=== PATIENT | female | born 1980 | race Caucasian/White ===

== ENCOUNTER 2017-01-28 17:03 | Inpatient (IN) | payer SELFPAY ==
[2017-01-28] MEDS ORDERED: Morphine Sulfate 2 MG/ML SYRINGE SLOW IVP PRN (19:25)
[2017-01-28] MEDS: traMADol HCl 50 MG TAB PO PRN (20:58)
--- NOTE | 2017-01-28 22:07 | HP ---
CHIEF COMPLAINT: Left hand pain. HISTORY OF PRESENT ILLNESS: Ms. Maddox is a 36-year-old female who was helping a feral cat. The cat bit her left hand on both the dorsal and palmar aspect over the index finger and web space. This oc curred 2 nights ago. She has developed increasing pain, swelling, and erythema. She has had stiffn ess of the finger. She has felt like she has had a low grade fever. She presented to the emergency department tonight. She has been admitted for intravenous antibiotics. She reports some pain at r est, but pain is increased with mobility. She is right hand dominant. No other injuries. PAST MEDICAL HISTORY: Negative. PAST SURGICAL HISTORY: Appendectomy and tubal ligation, also cholecystectomy and previous right ank le surgery. PSYCHIATRIC HISTORY: Negative. SOCIAL HISTORY: The patient drinks alcohol occasionally. No tobacco or drug use. ALLERGIES: CHLORHEXIDINE, CLINDAMYCIN, HIBICLENS and SULFA ANTIBIOTICS. FAMILY MEDICAL HISTORY: Noncontributory. PHYSICAL EXAMINATION: VITAL SIGNS: Stable, blood pressure 145/99, pulse is 98, respiratory rate 17, temperature is 98.3. GENERAL: She is alert and oriented, sitting upright, in no apparent distress. RESPIRATORY: Breathing comfortably. ABDOMEN: Soft, nontender, nondistended. MUSCULOSKELETAL: The patient's left hand has erythema and warmth. There is swelling of the hand ov er the palmar and dorsal aspect at the radial side of the hand. She has decreased range of motion o f the index finger. She has several very small puncture wounds consistent with a cat bite. She has tenderness along the flexor tendon and the erythema in this area. No palmar pain. Two second capi llary refill. Sensation is intact. No blistering or other skin abnormality. IMPRESSION: Early flexor tenosynovitis and hand infection from a cat bite. PLAN: At this point, the patient has been started on intravenous vancomycin and Zosyn. She will co ntinue this overnight. I will reassess her in the morning. If she has no better, I will take her t o surgery tomorrow morning for irrigation and debridement of the flexor tendon sheath as well as the small puncture wounds. She is aware of risks and benefits. She will be n.p.o. at midnight. She w ill have adequate pain control.
[2017-01-28 22:27] VITALS: BMI 44.6
[2017-01-28] MEDS: Piperacillin/Tazobactam 3.375 GM in Sodium Chloride 0.9% 100 ML IVPB SCH (23:33)
[2017-01-29] MEDS: Sodium Chloride 0.9% 1,000 ML IV SCH ×3 (00:30→15:40)
[2017-01-29] MEDS: Piperacillin/Tazobactam 3.375 GM in Sodium Chloride 0.9% 100 ML IVPB SCH ×4 (06:43→23:47)
[2017-01-29] MEDS ORDERED: Dexamethasone 20 MG/5 ML VIAL ONE (08:14)
[2017-01-29] MEDS ORDERED: Propofol 200 MG/20 ML VIAL ONE (08:14)
[2017-01-29] MEDS ORDERED: Ondansetron HCl/PF 4 MG/2 ML Vial ONE (08:14)
[2017-01-29] MEDS ORDERED: Ketorolac Tromethamine 30 MG/ML VIAL ONE (08:14)
[2017-01-29] MEDS ORDERED: Lidocaine 2% PF 10 ML AMP (For Epidural Use) ONE (08:14)
[2017-01-29] MEDS ORDERED: Meperidine HCl/PF 25 MG/ML VIAL ONE (08:53)
[2017-01-29] MEDS ORDERED: Promethazine HCl 25 MG/ML VIAL SLOW IVP PRN (09:02)
[2017-01-29] MEDS ORDERED: Promethazine HCl 25 MG/ML VIAL IM PRN (09:02)
[2017-01-29] MEDS ORDERED: Ondansetron HCl/PF 4 MG/2 ML Vial IVP PRN (09:02)
[2017-01-29] MEDS ORDERED: Fentanyl 100 MCG/2 ML VIAL ONE (09:02)
[2017-01-29] MEDS: Ondansetron HCl/PF 4 MG/2 ML Vial SLOW IVP PRN (12:41)
[2017-01-29] MEDS: traMADol HCl 50 MG TAB PO PRN ×2 (12:44→20:25)
[2017-01-29] MEDS ORDERED: Sodium Chloride 0.9% 500 ML IVPB SCH (14:00)
--- NOTE | 2017-01-29 15:23 | PDOC.EVN ---
Event Note - Event Note Event Note: Consult note dictated from IM perspective 1) Left hand cat bite 2) S/P I&D 3) Hypotension 4) Bradycardia - at this point in time we would recommend to continue current plan of care - agree with IVFs and pain management - bradeycardia improving, HR measured over one minute and was found to be 70 - SBP improving with IVFs, continue IVFs - case and plan d/w patient and family at length, they understand and agree with this plan Thank you very much for the consult on this case, will follow closely with you and make further recommendations and changes from an internal medicine perspective as appropriate.
--- NOTE | 2017-01-29 15:38 | OP ---
DATE OF OPERATION: 01/29/2017 OPERATION: Irrigation and debridement of left hand infection with irrigation and debridement of lef t flexor tenosynovitis of the index finger. PREOPERATIVE DIAGNOSIS: Left hand infection with flexor tenosynovitis of the index finger. POSTOPERATIVE DIAGNOSIS: Left hand infection with flexor tenosynovitis of the index finger. COMPLICATIONS: None. ESTIMATED BLOOD LOSS: Minimal. SURGEON: Mason Prieto M.D. ANESTHESIA: General plus local. INDICATIONS: Ms. Maddox is a 36-year-old female who has developed a severe infection of the hand afte r a cat bite. She has been indicated for the above procedures to eradicate infection and prevent an y further worsening or complication. Risks have been reviewed in detail. She has elected to procee d with the operation. DESCRIPTION OF PROCEDURE: Ms. Maddox was identified in the preoperative holding area. Her correct ex tremity was marked. She was carried to the operating room. She was positioned supine. General ane sthesia was induced. A multidisciplinary timeout was performed. The left hand was prepped and drap ed in a sterile fashion. We began the procedure with an incision over the dorsal hand at the patient's puncture wounds. We d issected down through the subcutaneous tissues. We exposed the underlying tendinous structures. At this point, we thoroughly irrigated with copious lavage these 2 small wounds. We then loosely clos ed with a 4-0 nylon suture. Next, we made a oblique incision over the palm at the palmar cat bite w ounds. We dissected down to the flexor tendon. The sheath was opened. At this point, we encounter ed a cloudy fluid, which was cultured. We exposed the tendon itself. We thoroughly irrigated with copious lavage. We performed a thorough irrigation with 1 liter of fluid. At this point, we loosel y closed with a 4-0 nylon suture. A sterile dressing was applied. The patient was taken to recover y room in good condition without complication.
--- NOTE | 2017-01-29 16:23 | CON ---
DATE OF CONSULTATION: 01/29/2017 REASON FOR CONSULTATION: Hypotension and bradycardia. CHIEF COMPLAINT FOR ADMISSION: Left hand pain status post cat bite. HISTORY OF PRESENT ILLNESS: This is a 36-year-old female who was apparently bitten by a cat 4 days ago, was given oral antibiotics. The patient was noted to have swelling in her left hand as well as the dorsal and ventral portions of her left hand. Patient was admitted to surgical team and was ob served for 12 hours, noted to have worsening of her swelling. Concern for compartment syndrome was present. The patient was opted to take to the OR for incision and drainage. The patient at this po int in time is status post incision and drainage and has been seen by Internal Medicine due to low b lood pressure and bradycardia. The patient states that her normal blood pressure has been in the 11 0s to 120s and her heart rate usually runs in the 70s-80s. The patient states that this issue with blood pressure and heart rate has never occurred in the past. Denies any alleviating or aggravating factors. No nausea, vomiting, diarrhea, constipation, chest pain, fevers, or shortness of breath p resent at the time of evaluation. ALLERGIES: No known drug allergies. MEDICATIONS: The patient does not take any home medications. PAST MEDICAL HISTORY: None. PAST SURGICAL HISTORY: Right ankle reconstruction at the age of 18 secondary to fall, two surgeries there; left ovarian cyst removal; and cholecystectomy. FAMILY HISTORY: Addiction runs in her father's side and that is the only medical history that she h as. SOCIAL HISTORY: The patient drinks alcohol socially. Denies any smoking current or past. REVIEW OF SYSTEMS: Twelve point review of systems performed. Pertinent positives listed in the HPI , otherwise negative. PHYSICAL EXAMINATION: VITAL SIGNS: Blood pressure is 112/69, heart rate of 68, temperature is 97.4, respiratory rate is 1 8, O2 saturation 96% on 2 liters nasal cannula, and temperature of 97.4. GENERAL: The patient lying in bed 35% bed elevation, no acute distress, breathing, nasal cannula, a ir. HEENT: NC, AT. PERRLA, EOMI. Oral cavity moist and pink. NECK: Supple, nontender, mobile palpable thyroid. No lymphadenopathy noted. GENERAL APPEARANCE: General body habitus. The patient is an obese female. CARDIOVASCULAR: Regular rate and rhythm. S1, S2. No murmurs, rubs or gallops appreciated. PULMONARY: Clear to auscultation bilaterally. Symmetric chest exam expansion. ABDOMEN: Nondistended, rotund, positive bowel sounds, soft, nontender to palpation. EXTREMITIES: Trace edema in bilateral lower extremities. 2+ peripheral pulses noted. NEUROLOGIC: Cranial nerves II-XII intact. No loss of motor or sensory function. PSYCHIATRIC: Normal affect, alert, oriented x3. SKIN: No rashes or bruises noted. ASSESSMENT AND PLAN: 1. Left hand cat bite. 2. Status post incision and drainage. 3. Hypotension. 4. Bradycardia. At this point in time, we agree with continuation of IV fluids. We will continue with (03:15) mL of normal saline for now. Bradycardia may or may not be a reflexive reaction to anesthesia, the patient's pulse rate is ranging from 60s to upper 70s during evaluation; however, atrial fibrillati on was not seen on monitors. This is likely a response to anxiety, anesthesia, and pain. Okay to continue morphine for pain management. If needed would accept tramadol as an alternative an d use morphine only as needed for breakthrough pain levels 8/10 or greater given possibility of sameer ycardia and low blood pressure induced by morphine. We will continue to follow this patient closely with you. The patient should have recovery of her b lood pressure back to normal and heart rate back to normal within 24-48 hours. Thank you very much for this consultation on this patient. We will follow very closely with you and make any further recommendations and changes from an Internal Medicine perspective as appropriate. Case and plan discussed with patient's mother and both sons at length. They all understand and agr ee with this plan.
[2017-01-29] MEDS: HYDROcodone/Acetaminophen 5/325 mg Tablet PO PRN ×2 (17:35→23:46)
[2017-01-29] MEDS: Vancomycin HCl 1 GM in Premix Bag 1 BAG IVPB SCH (20:28)
[2017-01-30] MEDS: traMADol HCl 50 MG TAB PO PRN ×2 (04:11→15:47)
[2017-01-30] MEDS: Sodium Chloride 0.9% 1,000 ML IV SCH (04:14)
[2017-01-30] MEDS: Piperacillin/Tazobactam 3.375 GM in Sodium Chloride 0.9% 100 ML IVPB SCH ×2 (06:39→11:09)
[2017-01-30] MEDS ORDERED: Mag-Al 1200 mg/1200 mg/30 ML UDCUP PO PRN (06:56)
[2017-01-30] MEDS ORDERED: Artificial Tears 18 DROP/0.9 ML EA EYE PRN (06:56)
[2017-01-30] MEDS ORDERED: Eucerin (Mineral Oil/Petrolatum,White) 30 gm Jar TOP PRN (06:56)
[2017-01-30] MEDS ORDERED: Diabetic Tussin 200 MG/10 ML UDCUP PO PRN (06:56)
[2017-01-30] MEDS ORDERED: Loperamide HCl 2 MG CAP PO PRN (06:56)
[2017-01-30] MEDS ORDERED: Ondansetron ODT 4 MG TAB PO PRN (06:56)
[2017-01-30] MEDS ORDERED: Milk Of Magnesia 30 ML UDCUP PO PRN (06:56)
[2017-01-30] MEDS ORDERED: Famotidine 20 MG TAB PO PRN (06:56)
[2017-01-30] MEDS ORDERED: Senokot 8.6 MG TAB PO PRN (06:56)
[2017-01-30] MEDS ORDERED: Loratadine 10 MG TAB PO PRN (06:56)
[2017-01-30] MEDS ORDERED: Sodium Chloride 0.65% Nasal 44 ML BOT EA NARE PRN (06:56)
[2017-01-30] MEDS ORDERED: Acetaminophen 325 MG TAB PO PRN (06:56)
[2017-01-30] MEDS ORDERED: Zolpidem Tartrate 5 MG TAB PO PRN (06:56)
[2017-01-30] MEDS: HYDROcodone/Acetaminophen 5/325 mg Tablet PO PRN (08:41)
[2017-01-30] MEDS: Vancomycin HCl 1 GM in Premix Bag 1 BAG IVPB SCH (08:42)
--- NOTE | 2017-01-30 10:56 | PDOC.PN ---
- Subjective Encounter Start Date: 01/30/17 Encounter Start Time: 07:50 -: old records requested/rev Patient seen and examined. No new complaints. No overnight events - Objective MAR Reviewed: Yes Vital Signs & Weight: Vital Signs (12 hours) Temp Pulse Resp BP Pulse Ox 01/30/17 08:00 98.1 F 41 L 14 148/90 H 100 01/30/17 04:00 97.7 F 56 L 14 116/74 96 01/30/17 00:00 97.6 F 45 L 16 134/64 97 Weight Weight 285 lb I&O: 01/29/17 01/30/17 01/31/17 06:59 06:59 06:59 Intake Total 5530 Balance 5530 Phys Exam - Physical Examination Constitutional: NAD HEENT: PERRLA, moist MMs, sclera anicteric Neck: no JVD, supple Respiratory: no wheezing, no rales, no rhonchi Cardiovascular: RRR, no significant murmur, no rub Gastrointestinal: soft, non-tender, no distention, positive bowel sounds Musculoskeletal: no edema, pulses present Neurological: non-focal, normal sensation, moves all 4 limbs Psychiatric: normal affect, A&O x 3 Skin: no rash, normal turgor Dx/Plan (1) Cat bite of hand Code(s): S61.459A - OPEN BITE OF UNSPECIFIED HAND, INITIAL ENCOUNTER; W55.01XA - BITTEN BY CAT, INITIAL ENCOUNTER Status: Acute Qualifiers: Laterality: left (2) Bradycardia Code(s): R00.1 - BRADYCARDIA, UNSPECIFIED Status: Acute (3) Morbid obesity with BMI of 40.0-44.9, adult Code(s): E66.01 - MORBID (SEVERE) OBESITY DUE TO EXCESS CALORIES; Z68.41 - BODY MASS INDEX (BMI) 40.0-44.9, ADULT Status: Chronic (4) Hypotension Status: Resolved - Plan cont current plan of care, continue antibiotics * pt is asymptomatic * today i will check cbc, bmp, tsh and cardiac enzyme and i will do ekg * if all normal she is medically stable for discharge * she does not need more testing * medication reviewed as below * symptomatic treatment.. * oral antibiotics given by primary team Review of Systems - Review of Systems ENT: negative: Ear Pain, Ear Discharge, Nose Pain, Nose Discharge, Nose Congestion, Mouth Pain, Mouth Swelling, Throat Pain, Throat Swelling, Other Respiratory: negative: Cough, Dry, Shortness of Breath, Hemoptysis, SOB with Excertion, Pleuritic Pain, Sputum, Wheezing Cardiovascular: negative: Chest Pain, Palpitations, Orthopnea, Paroxysmal Noc. Dyspnea, Edema, Light Headedness, Other Gastrointestinal: negative: Nausea, Vomiting, Abdominal Pain, Diarrhea, Constipation, Melena, Hematochezia, Other Genitourinary: negative: Dysuria, Frequency, Incontinence, Hematuria, Retention , Other Musculoskeletal: negative: Neck Pain, Shoulder Pain, Arm Pain, Back Pain, Hand Pain, Leg Pain, Foot Pain, Other - Medications/Allergies Allergies/Adverse Reactions: Allergies Allergy/AdvReac Type Severity Reaction Status Date / Time chlorhexidine Allergy Verified 01/28/17 18:[address] [[address] [facility]] clindamycin Allergy Verified 01/28/17 18:06 Sulfa (Sulfonamide Allergy Verified 01/28/17 18:06 Antibiotics) Medications: Current Medications Acetaminophen (Tylenol) 650 mg PO Q4H PRN PRN Reason: Headache/Fever or Mild Pain Hydrocodone Bitart/Acetaminophen ([place] 5/325) 2 tab PO Q6H PRN PRN Reason: Pain Last Admin: 01/30/17 08:41 Dose: 2 tab Al Hydroxide/Mg Hydroxide (Maalox) 15 ml PO Q4H PRN PRN Reason: Heartburn or Indigestion Artificial Tears (Tears Naturale) 0 drop EA EYE PRN PRN PRN Reason: Dry Eyes Famotidine (Pepcid) 20 mg PO BIDPRN PRN PRN Reason: Heartburn or Indigestion Guaifenesin (Robitussin Sf) 200 mg PO Q4H PRN PRN Reason: Cough Hydralazine HCl (Apresoline) 10 mg SLOW IVP Q4H PRN PRN Reason: Systolic BP > 180 Piperacillin Sod/Tazobactam (Sod 3.375 gm/ Sodium Chloride) 100 mls @ 200 mls/ hr IVPB Q6HR [facility] Stop: 01/31/17 23:59 Last Admin: 01/30/17 06:39 Dose: 100 mls Sodium Chloride (Normal Saline 0.9%) 1,000 mls @ 75 mls/hr IV .[id number] [facility] Last Admin: 01/30/17 04:14 Dose: 1,000 mls Vancomycin HCl 1 gm/ Device 200 mls @ 200 mls/hr IVPB Q12HR DYAN Stop: 01/31/17 21:01 Last Admin: 01/30/17 08:42 Dose: 200 mls Loperamide HCl (Imodium) 2 mg PO PRN PRN PRN Reason: Diarrhea/Loose Stools Loratadine (Claritin) 10 mg PO DAILYPRN PRN PRN Reason: Sinus Symptoms Magnesium Hydroxide (Milk Of Magnesium) 30 ml PO DAILYPRN PRN PRN Reason: Constipation Mineral Oil/White Petrolatum (Eucerin Cream) 0 gm TOP BIDPRN PRN PRN Reason: Dry Skin Morphine Sulfate (Morphine Sulfate) 2 mg SLOW IVP Q4H PRN PRN Reason: Severe Pain (7-10) Last Admin: 01/29/17 16:20 Dose: 2 mg Ondansetron HCl (Zofran) 4 mg SLOW IVP Q4H PRN PRN Reason: Nausea/Vomiting Last Admin: 01/29/17 12:41 Dose: 4 mg Ondansetron HCl (Zofran Odt) 4 mg PO Q6H PRN PRN Reason: Nausea/Vomiting Senna (Senokot) 2 tab PO HSPRN PRN PRN Reason: Constipation Sodium Chloride (Flush - Normal Saline) 10 ml IVF PRN PRN PRN Reason: Saline Flush Sodium Chloride ([place] Nasal Colon 0.65%) 0 ml EA NARE QIDPRN PRN PRN Reason: Nasal Congestion Tramadol HCl (Ultram) 100 mg PO Q6H PRN PRN Reason: Pain Last Admin: 01/30/17 04:11 Dose: 100 mg Zolpidem Tartrate (Ambien) 5 mg PO HSPRN PRN PRN Reason: Insomnia
[2017-01-30] MEDS: Ondansetron HCl/PF 4 MG/2 ML Vial SLOW IVP PRN (11:09)
[2017-01-30 11:28] LABS: #Lymphocytes 2.3 thou/uL (1.20-3.40); #Monocytes 0.5 thou/uL (0.11-0.59); #Neutrophils 5.3 thou/uL (1.40-6.50); %Basophils 0.1 % (0.0-1.0); %Eosinophils 0.2 % (0.0-10.0); %Monocytes 6.2 % (0.0-10.0); Hematocrit 31.9 % (36.0-47.0); Mean Platelet Volume 8.6 fL (7.4-10.4); Red Blood Cell (RBC) Count 4.08 mill/uL (4.20-5.40); White Blood Cell (WBC) Count 8.1 thou/uL (4.8-10.8)
[2017-01-30 11:47] LABS: Anion Gap 11 mmol/L (10-20); BUN (Urea Nitrogen) 11 mg/dL (7.0-18.7); Calc. Creatinine Clearance 207 mL/min (70-130); Calcium 8.5 mg/dL (7.8-10.44); Carbon Dioxide 24 mmol/L (22-29); Chloride 109 mmol/L (98-107); Estimated GFR-MDRD 85
--- NOTE | 2017-01-30 13:20 | DIS ---
DATE OF ADMISSION: 01/28/2017 DATE OF DISCHARGE: 01/30/2017 PRIMARY CARE PHYSICIAN: [facility] call admission. DISCHARGE DISPOSITION: Home. PRIMARY DISCHARGE DIAGNOSES: 1. Cellulitis, left hand status post incision and drainage after cat bite of the hand. 2. Asymptomatic bradycardia. 3. Hypotension, resolved. SECONDARY DISCHARGE DIAGNOSIS: Morbid obesity with body mass index of 44. PRIMARY PROCEDURE/OPERATION: I\T\D was performed by Dr. Prieto for left hand cellulitis. SIGNIFICANT LABORATORY DATA: CBC normal. BMP normal, hemoglobin 10.1. Cardiac enzymes negative. TSH normal. Culture from finger is pending. DISCHARGE MEDICATIONS: Patient is given antibiotic and pain medication prescription by primary team . ALLERGIES: CHLORHEXIDINE, CLINDAMYCIN, SULFA DRUGS. CONTRAINDICATIONS: None. CODE STATUS: FULL CODE. DISCHARGE PLAN: Post hospital, the patient will follow up with Dr. Prieto in 7 days. HOSPITAL COURSE: A 36-year-old female who had a cat bite on her left hand and subsequently she was having tenosynovitis of the left hand infection and flexor tenosynovitis of index finger. Patient r equired minor I\T\D by him. Postoperatively, the patient was hypotensive and she had bradycardia an d that is why we were consulted. Bradycardia was probably related with vasovagal versus asymptomati c bradycardia. Thyroid function is normal. She has sinus bradycardia. The patient is asymptomatic . Her cardiac enzyme is negative. Her pulses, when we checked for entire minute, it goes to above 50 all the time. She does not need any further investigation at this point. The patient will have oral antibiotic therapy and pain medication as prescribed by primary team and we will sign off. The patient is seen and examined at bedside today. Please see my progress note from today for on license of [facility] er details.
[2017-01-30] MEDS ORDERED: Ibuprofen 600 MG TAB PO PRN (13:43)
[2017-01-30] MEDS ORDERED: Acetaminophen/Codeine 30-300mg Tablet PO PRN ×2 (14:15)
[2017-01-30 16:38] VITALS: BP 121/62; TEMP 97.9
--- NOTE | 2017-01-31 10:01 | EKG ---
Test Reason : Blood Pressure : / mmHG Vent. Rate : 059 BPM Atrial Rate : 059 BPM P-R Int : 142 ms QRS Dur : 094 ms QT Int : 450 ms P-R-T Axes : 048 025 028 degrees QTc Int : 445 ms Sinus bradycardia with sinus arrhythmia Otherwise normal ECG No previous ECGs available Confirmed by ROBIN BENNETT ([id number]) on 01/31/2017 10:01:01 AM Referred By: FRANCISCO J Confirmed By:ROBIN BENNETT
== END 2017-01-30 18:05 | disposition home or self-care (01) | DRG 580 ==
LOC: ERS 17:03 → SURG B 18:58
PROVIDERS: ADMIT Orthopaedic Surgery; ATTEND Orthopaedic Surgery
PROC: 0J9K0ZZ Drainage of Left Hand Subcutaneous Tissue and Fascia, Open Approach (ICD-10-PCS; principal; 2017-01-29)
PROC: 0L980ZZ Drainage of Left Hand Tendon, Open Approach (ICD-10-PCS; principal; 2017-01-29)
DX: L03.114 Cellulitis of left upper limb (principal); Z68.41 Body mass index [BMI] 40.0-44.9, adult; I95.9 Hypotension, unspecified; E66.01 Morbid (severe) obesity due to excess calories; S61.452A Open bite of left hand, initial encounter; M65.842 Other synovitis and tenosynovitis, left hand; W55.01XA Bitten by cat, initial encounter; R00.1 Bradycardia, unspecified; R55 Syncope and collapse
CPT/HCPCS: 36415; 80048; 82553; 84443; 84484; 85025; 87070; 87205; 93005; 93010; 96374; J1100; J1885; J2001; J2175; J2270; J2405; J2543; J2704; J3010; J3370; J7050

== ENCOUNTER 2017-11-23 14:30 | Emergency (ER) | payer SELFPAY ==
[2017-11-23] MEDS ORDERED: Fentanyl 100 MCG/2 ML VIAL ONE (15:02)
--- NOTE | 2017-11-23 15:42 | ULT ---
PELVIC ULTRASOUND WITH BENNETT SCALE AND DOPPLER COLOR FLOW TRANSVAGINAL PELVIC ULTRASOUND: Date: 11/23/17 INDICATION: Left lower quadrant pain. FINDINGS: No evidence of focal uterine lesion. Endometrial stripe is appropriate in thickness for patient's age at 8.0 mm. No evidence of significant free pelvic fluid. Doppler evaluation reveals flow to each ova ry with vascular waveforms documented. There is asymmetric prominent volume of the left ovary, relati ve to the right. The left ovarian length is approximately 4.5 cm. There is no discrete ovarian lesion evident. IMPRESSION: 1. Asymmetric prominent volume of left ovary, nonspecific. No associated ovarian lesion is visualize d. 2. No free pelvic fluid. 3. Unremarkable appearance of the uterine and endometrium. 4. Recommend clinical correlation to exclude evidence of a developing ovarian torsion, as the presen ce of vascularity within the left ovary does not exclude torsion as a diagnosis. As necessary, imagin g follow-up may be obtained. POS: LAVINIA
--- NOTE | 2017-11-24 04:11 | CON ---
DATE OF CONSULTATION: 11/23/2017 REFERRING PHYSICIAN: Dr. Brady Otero. CHIEF COMPLAINT: Left lower quadrant pain with enlarged ovary. HISTORY OF PRESENT ILLNESS: The patient is a 37-year-old female transferred from [place] for concerns of possible ovarian torsion. METAL BONDER was consulted for an enlarged left ovary and persistent left pelvic pain. Patient describes that the pain began as a sharp pain in her left lower quadrant, felt like something had ruptured and then has improved some, but has moved to more diffuse in her lower pelvis with concentration left lower quadrant. The patient reports that she has a history of ovarian cyst ruptures this feels like. She reports that the first day of her last period was about 2 weeks ago. She reports regular monthly periods and is not on any kind of control. The patient reports that she has had some diarrhea since yesterday. She denies fever, headache, chest pain, shortness of breath. The patient has had some nausea and vomiting. She denies any chest pain or shortness of breath. She does report a rash that she has had in between her breasts and to the left side that itches. She denies any bleeding or change in discharge or any urinary symptoms. PAST MEDICAL HISTORY: Includes obesity and history of ovarian cysts. PAST SURGICAL HISTORY: She has had surgery on her hand, appendectomy, cholecystectomy. She has had several laparoscopic surgeries for ovarian cyst drainage. She has had a right ankle surgery and a tubal ligation. SOCIAL HISTORY: The patient reports very rare alcohol use, denies drug or tobacco use. CURRENT MEDICATIONS: None at home. She has had morphine, Toradol, fentanyl, Zofran in the [place] and a local ER here [facility] in [place]. PHYSICAL EXAMINATION: VITAL SIGNS: Blood pressure 106/51, pulse is 68, respiratory rate of 18, temperature 97.9. GENERAL: The patient appears to be in no acute distress. She is alert and oriented, cooperative and pleasant to interact with. HEAD: Normocephalic, atraumatic. LUNGS: Clear to auscultation bilaterally. HEART: Regular rate and rhythm. BREASTS: The rash in between her breasts and to lateral of her left breast. EYES: Her macular with irregular edges appeared rolled and there does not appear to be much scaling. ABDOMEN: Tender, more diffusely in the lower pelvis and concentrated on left lower quadrant. EXTREMITIES: Nontender, nonedematous. LABORATORY AND DIAGNOSTIC DATA: Pelvic ultrasound demonstrates with greater diameter approximately 4.5 cm with no visible ovarian lesions. She has no free fluid in the pelvis and unremarkable appearing uterine and endometrium. The patient has a negative test with clear yellow urine and no evidence of urinary tract infection. CMP has normal LFTs. Normal white count at 7.0, hemoglobin 11.2, hematocrit 37.0, platelets 216,000. ASSESSMENT AND PLAN: The patient is a 37-year-old female who is presenting with acute onset of left lower quadrant pain and a slightly enlarged left ovary. There is no evidence of ovarian torsion by ultrasound. The chances of an ovarian torsion with ovary measuring 4.5 cm. is extremely low. The patient' s symptoms and timing are consistent with mittelschmerz or perhaps a small hemorrhagic cyst that ruptured with ovulation. Patient's history and experiences consistent with previous experiences she has had with a ruptured cyst. The patient has been given reassurance. She has also been given precautions to return should her pain persist or worsen. She has been counseled to take ibuprofen as the mainstay for pain control, she also will be given something a little bit stronger for the next day or two to help with any exacerbations of pain. PURNIMA
== END 2017-11-23 17:04 | disposition home or self-care (01) ==
LOC: ERS 14:30
DX: R10.32 Left lower quadrant pain (principal); E66.9 Obesity, unspecified
CPT/HCPCS: 76856; 93976; 96374; J3010

== ENCOUNTER 2020-10-26 05:44 | Inpatient (IN) | payer OTHER ==
[2020-10-26] MEDS ORDERED: Promethazine HCl 25 MG/ML VIAL ONE (06:07)
[2020-10-26] MEDS ORDERED: Ondansetron ODT 8 MG TAB PO PRN (08:31)
[2020-10-26] MEDS ORDERED: rOPINIRole HCl 0.25 MG TAB PO SCH (09:30)
[2020-10-26] MEDS ORDERED: Meclizine HCl 25 MG TAB PO PRN (10:10)
[2020-10-26 11:42] VITALS: BMI 44.1
[2020-10-26] MEDS: Dextrose 5 % And 0.9 % NaCl 1,000 ML IV SCH ×2 (12:30→18:35)
[2020-10-26] MEDS: Ondansetron PF 4 MG/2 ML Vial IVP PRN ×2 (12:30→18:37)
[2020-10-26] MEDS: Ibuprofen 600 MG TAB PO PRN ×3 (12:30→21:15)
[2020-10-26] MEDS: busPIRone HCl 5 MG TAB PO SCH ×2 (15:22→20:35)
[2020-10-26 15:39] LABS: Free T4 (Free Thyroxine) 1.23 ng/dL (0.70-1.48)
[2020-10-26 19:45] LABS: SARS-CoV-2 PCR by NAA Not Detected (NotDetected)
[2020-10-26] MEDS: Ferrous Sulfate 325 MG TAB PO SCH (20:35)
[2020-10-26] MEDS: Calcium Carbonate 600 MG TAB PO SCH (20:35)
[2020-10-27] MEDS: Ondansetron PF 4 MG/2 ML Vial IVP PRN ×4 (00:42→17:24)
[2020-10-27] MEDS: Ibuprofen 600 MG TAB PO PRN ×3 (05:07→17:24)
[2020-10-27] MEDS: Levothyroxine 100 MCG SDV SLOW IVP SCH (07:05)
[2020-10-27] MEDS ORDERED: Atropine Sulfate 1 mg/10 ml Syringe IVP SCH (09:00)
[2020-10-27] MEDS: Calcium Carbonate 600 MG TAB PO SCH ×2 (09:53→20:40)
[2020-10-27] MEDS: busPIRone HCl 5 MG TAB PO SCH ×3 (09:53→20:40)
[2020-10-27] MEDS: Ferrous Sulfate 325 MG TAB PO SCH ×2 (09:54→20:40)
[2020-10-27] MEDS ORDERED: rOPINIRole HCl 0.25 MG TAB PO SCH (11:15)
[2020-10-27] MEDS: rOPINIRole HCl 0.25 MG TAB PO SCH ×2 (15:13→20:39)
[2020-10-27] MEDS ORDERED: Ondansetron PF 4 MG/2 ML Vial IM SCH (18:30)
[2020-10-27] MEDS ORDERED: Loperamide HCl 2 MG CAP PO PRN (20:00)
[2020-10-28] MEDS: Ondansetron PF 4 MG/2 ML Vial IVP PRN ×3 (04:03→21:27)
[2020-10-28] MEDS: Levothyroxine 100 MCG SDV SLOW IVP SCH (05:42)
[2020-10-28] MEDS ORDERED: Hyoscyamine Sulfate SL 0.125 mg Tablet PO PRN (07:28)
[2020-10-28] MEDS: Ferrous Sulfate 325 MG TAB PO SCH ×2 (08:25→21:24)
[2020-10-28] MEDS: rOPINIRole HCl 0.25 MG TAB PO SCH ×3 (08:26→21:24)
[2020-10-28] MEDS: busPIRone HCl 5 MG TAB PO SCH ×3 (08:26→21:23)
[2020-10-28] MEDS: Calcium Carbonate 600 MG TAB PO SCH ×2 (08:26→21:24)
[2020-10-28] MEDS: Ibuprofen 600 MG TAB PO PRN ×2 (12:20→23:16)
[2020-10-28] MEDS ORDERED: Gentamicin 80 MG/2 ML VIAL ONE (17:04)
[2020-10-28] MEDS ORDERED: CEFAZOLIN 1 GM VIAL ONE (17:04)
[2020-10-28] MEDS ORDERED: Lidocaine 1% (PF) 30 ML VIAL ONE ×3 (17:04→18:42)
[2020-10-28] MEDS ORDERED: Fentanyl 100 MCG/2 ML VIAL ONE ×2 (17:55→18:26)
[2020-10-28] MEDS ORDERED: Midazolam HCl 2 mg/2 ml Vial ONE (17:55)
[2020-10-28] MEDS ORDERED: Acetaminophen/Codeine 30-300mg Tablet PO PRN (20:45)
[2020-10-28] MEDS: Cephalexin 250 MG CAP PO SCH (21:23)
[2020-10-29] MEDS: Acetaminophen/Codeine 30-300mg Tablet PO PRN ×2 (01:25→07:26)
[2020-10-29] MEDS: Ondansetron PF 4 MG/2 ML Vial IVP PRN ×2 (03:35→09:09)
[2020-10-29] MEDS ORDERED: Morphine 2 MG/ML VIAL SLOW IVP SCH (04:15)
[2020-10-29] MEDS: Levothyroxine 100 MCG SDV SLOW IVP SCH (07:26)
[2020-10-29 07:35] LABS: Troponin I 0.016 ng/mL (< 0.028)
[2020-10-29 08:45] VITALS: BP 140/89; TEMP 98.4
[2020-10-29] MEDS: Cephalexin 250 MG CAP PO SCH (09:09)
[2020-10-29] MEDS: rOPINIRole HCl 0.25 MG TAB PO SCH (09:09)
[2020-10-29] MEDS: Ferrous Sulfate 325 MG TAB PO SCH (09:09)
[2020-10-29] MEDS: Calcium Carbonate 600 MG TAB PO SCH (09:09)
[2020-10-29] MEDS: busPIRone HCl 5 MG TAB PO SCH (09:09)
[2020-10-29] MEDS: Ibuprofen 600 MG TAB PO PRN (11:04)
== END 2020-10-29 11:50 | disposition home or self-care (01) | DRG 243 ==
LOC: ERS 05:44 → 2SW 06:28 → OBSVTOIN 10-28 07:27
PROVIDERS: ADMIT Student in an Organized Health Care Education/Training Program; ATTEND Internal Medicine
PROC: 0JH604Z Insertion of Pacemaker, Single Chamber into Chest Subcutaneous Tissue and Fascia, Open Approach (ICD-10-PCS; principal; 2020-10-28)
PROC: 02H63JZ Insertion of Pacemaker Lead into Right Atrium, Percutaneous Approach (ICD-10-PCS; 2020-10-28)
DX: R00.1 Bradycardia, unspecified (principal); Z68.41 Body mass index [BMI] 40.0-44.9, adult; E89.0 Postprocedural hypothyroidism; G25.81 Restless legs syndrome; F15.10 Other stimulant abuse, uncomplicated; T38.1X5A Adverse effect of thyroid hormones and substitutes, initial encounter; R11.2 Nausea with vomiting, unspecified; E66.01 Morbid (severe) obesity due to excess calories; G62.9 Polyneuropathy, unspecified; R74.01 Elevation of levels of liver transaminase levels; T42.6X5A Adverse effect of other antiepileptic and sedative-hypnotic drugs, initial encounter; R45.1 Restlessness and agitation; Z20.822 Contact with and (suspected) exposure to COVID-19; Z88.1 Allergy status to other antibiotic agents; Z88.2 Allergy status to sulfonamides; Z85.850 Personal history of malignant neoplasm of thyroid; Z79.899 Other long term (current) drug therapy; Z90.49 Acquired absence of other specified parts of digestive tract; Z98.51 Tubal ligation status; Z88.8 Allergy status to other drugs, medicaments and biological substances; Z90.89 Acquired absence of other organs; Z98.890 Other specified postprocedural states
CPT/HCPCS: 33249; 36415; 70450; 71045; 76942; 84439; 84481; 84484; 93005; 93010; 93306; 93724; 93880; 96372; 96374; 96375; 96376; 99152; 99153; C1785; C1898; G0378; J0461; J0690; J1580; J2001; J2250; J2270; J2405; J2550; J3010; Q0162; U0003; U0005

== ENCOUNTER 2021-01-13 11:07 | Day surgery (SDC) | payer OTHER ==
[2021-01-12 14:13] VITALS: BMI 42.3
[2021-01-13 12:26] LABS: SARS-CoV-2 NAA Rapid Test Not Detected (NotDetected)
[2021-01-13 13:56] LABS: #Eosinphils 0.1 thou/uL (0.0-0.7); #Lymphocytes 2.6 thou/uL (1.20-3.40); #Monocytes 0.7 thou/uL (0.11-0.59); #Neutrophils 5.8 thou/uL (1.40-6.50); %Basophils 0.3 % (0.0-1.0); %Eosinophils 1.2 % (0.0-10.0); %Lymphocytes 28.1 % (21.0-51.0); %Neutrophils 62.4 % (42.0-75.0); Hemoglobin 11.7 g/dL (12.0-16.0); Mean Corpuscular Hemoglobin 23.2 pg (27.0-31.0); Mean Corpuscular Volume 72.3 fL (78.0-98.0); Mean Platelet Volume 9.8 fL (7.4-10.4); Platelet Count 232 thou/uL (130-400); RBC Distribution Width 16.1 % (11.5-14.5); Red Blood Cell (RBC) Count 5.06 mill/uL (4.20-5.40); White Blood Cell (WBC) Count 9.2 thou/uL (4.8-10.8)
[2021-01-13] MEDS ORDERED: Lidocaine 1% PF 5 ML VIAL ONE (13:59)
[2021-01-13] MEDS ORDERED: PROPOFOL 200 MG/20 ML VIAL ONE (13:59)
[2021-01-13 14:12] LABS: Elliptocytes SLIGHT = 2-5 cells (100X) (0-1/hpf); Microcytosis SLIGHT = 6-15 cells (100X) (0-5/hpf)
[2021-01-13 14:32] LABS: Anion Gap 12 mmol/L (10-20); BUN (Urea Nitrogen) 6 mg/dL (7.0-18.7); Calc. Creatinine Clearance 182 mL/min (70-130); Calcium 8.9 mg/dL (7.8-10.44); Carbon Dioxide 25 mmol/L (22-29); Chloride 107 mmol/L (98-107); Glucose 93 mg/dL (70-105); Potassium 4.1 mmol/L (3.5-5.1); Sodium 140 mmol/L (136-145)
[2021-01-13 14:45] LABS: Anisocytosis SLIGHT = 6-15 cells (100X) (0-5/hpf); MDiff Complete? YES; Ovalocytes SLIGHT = 2-5 cells (100X) (0-1/hpf); Platelet Morphology Comment Appears Adequate
== END 2021-01-13 15:55 | disposition home or self-care (01) ==
LOC: SDC 11:07
PROVIDERS: ATTEND Internal Medicine Gastroenterology
PROC: 0DB78ZX Excision of Stomach, Pylorus, Via Natural or Artificial Opening Endoscopic, Diagnostic (ICD-10-PCS; principal; 2021-01-13)
PROC: 0DBG8ZX Excision of Left Large Intestine, Via Natural or Artificial Opening Endoscopic, Diagnostic (ICD-10-PCS; principal; 2021-01-13)
PROC: 0DBF8ZX Excision of Right Large Intestine, Via Natural or Artificial Opening Endoscopic, Diagnostic (ICD-10-PCS; principal; 2021-01-13)
PROC: 0DB98ZX Excision of Duodenum, Via Natural or Artificial Opening Endoscopic, Diagnostic (ICD-10-PCS; principal; 2021-01-13)
DX: D50.9 Iron deficiency anemia, unspecified (principal); K29.60 Other gastritis without bleeding; K29.80 Duodenitis without bleeding; K25.9 Gastric ulcer, unspecified as acute or chronic, without hemorrhage or perforation; R11.2 Nausea with vomiting, unspecified; R19.7 Diarrhea, unspecified; R63.4 Abnormal weight loss; Z68.41 Body mass index [BMI] 40.0-44.9, adult; Z79.899 Other long term (current) drug therapy; Z88.1 Allergy status to other antibiotic agents; Z88.2 Allergy status to sulfonamides; Z88.8 Allergy status to other drugs, medicaments and biological substances; Z95.0 Presence of cardiac pacemaker; Z20.822 Contact with and (suspected) exposure to COVID-19
CPT/HCPCS: 36415; 80048; 85025; 88305; 88312; J2704; U0002

== ENCOUNTER 2023-11-06 13:00 | Outpatient (CLI) | payer OTHER | END 2023-11-06 13:01 | disposition home or self-care (01) | LOC: ULT 13:00 | PROVIDERS: ATTEND Podiatrist Foot & Ankle Surgery | DX: M72.2 Plantar fascial fibromatosis (principal) | CPT/HCPCS: 76999 ==

== ENCOUNTER 2024-12-03 21:23 | Inpatient (IN) | payer MEDICAID, OTHER ==
[2024-12-03 22:47] VITALS: BMI 53.8
[2024-12-04] MEDS: Acetaminophen 325 MG TAB PO PRN (01:45)
[2024-12-04] MEDS: Dicyclomine 10 MG CAP PO SCH (02:59)
[2024-12-04 07:04] LABS: ALT (SGPT) 42 U/L (Less than 34); AST (SGOT) 57 U/L (11-34); Albumin 2.9 g/dL (3.1-4.5); Alkaline Phosphatase 96 U/L (40-110); Anion Gap 15 mmol/L (10-20); BUN (Urea Nitrogen) 10 mg/dL (7.0-18.7); Bilirubin, Total 0.3 mg/dL (0.3-1.2); Calc. Creatinine Clearance 205 mL/min (70-130); Calcium 8.3 mg/dL (7.8-10.44); Carbon Dioxide 20 mmol/L (22-29); Chloride 106 mmol/L (98-107); Globulin 3.1 g/dL (2.4-3.5); Glucose 101 mg/dL (70-105); Potassium 4.5 mmol/L (3.5-5.1); Sodium 136 mmol/L (136-145)
[2024-12-04 07:29] LABS: #Basophils Less than 0.03 10x3/uL (0.0-0.2); #Eosinophils 0.18 10x3/uL (0.0-0.7); #Monocytes 0.38 10x3/uL (0.11-0.59); #Neutrophils 3.99 10x3/uL (1.40-6.50); %Basophils 0.3 % (0.0-1.0); %Eosinophils 2.7 % (0.0-10.0); %Lymphocytes 30.7 % (21.0-51.0); %Monocytes 5.7 % (0.0-10.0); %Neutrophils 60.0 % (42.0-75.0); Hematocrit 33.1 % (36.0-47.0); Hemoglobin 10.0 g/dL (12.0-16.0); Mean Corpuscular Hemoglobin 24.0 pg (27.0-31.0); Mean Corpuscular Volume 79.4 fL (78.0-98.0); Platelet Count 216 10x3/uL (130-400); Red Blood Cell (RBC) Count 4.17 mill/uL (4.20-5.40); White Blood Cell (WBC) Count 6.65 10x3/uL (4.8-10.8)
[2024-12-04] MEDS: Pantoprazole 40 MG DR.TAB PO SCH (09:04)
[2024-12-04] MEDS: Dicyclomine 20 MG TAB PO SCH (09:04)
[2024-12-04] MEDS: Gabapentin 300 MG CAP PO SCH ×2 (09:16→20:42)
[2024-12-04 09:35] LABS: Gentamicin, Random 4.9 ug/mL (See Comment)
[2024-12-04] MEDS: cefTRIAXone\\ROCEPHIN 2 GM in Sodium Chloride 0.9% 100 ML IVPB SCH (12:17)
[2024-12-04 16:54] LABS: Free T4 (Free Thyroxine) 1.1 ng/dL (0.70-1.48); Thyroid Stimulating Hormone 16.1724 uIU/mL (0.35-4.94)
[2024-12-04] MEDS: Mupirocin 1 GM TUBE TP SCH (20:43)
[2024-12-04] MEDS: Nystatin 500,000 UNITS/5 ML UDCUP SSW SCH (20:43)
[2024-12-05 07:13] LABS: #Basophils 0.03 10x3/uL (0.0-0.2); #Eosinophils 0.17 10x3/uL (0.0-0.7); #Monocytes 0.42 10x3/uL (0.11-0.59); #Neutrophils 3.35 10x3/uL (1.40-6.50); %Basophils 0.5 % (0.0-1.0); %Eosinophils 2.9 % (0.0-10.0); %Lymphocytes 31.6 % (21.0-51.0); %Monocytes 7.2 % (0.0-10.0); %Neutrophils 57.5 % (42.0-75.0); Hematocrit 31.6 % (36.0-47.0); Hemoglobin 9.5 g/dL (12.0-16.0); Mean Corpuscular Hemoglobin 24.0 pg (27.0-31.0); Mean Corpuscular Volume 79.8 fL (78.0-98.0); Platelet Count 228 10x3/uL (130-400); Red Blood Cell (RBC) Count 3.96 mill/uL (4.20-5.40); White Blood Cell (WBC) Count 5.83 10x3/uL (4.8-10.8)
[2024-12-05 07:34] LABS: ALT (SGPT) 36 U/L (Less than 34); AST (SGOT) 32 U/L (11-34); Albumin 3.2 g/dL (3.1-4.5); Alkaline Phosphatase 101 U/L (40-110); Anion Gap 12 mmol/L (10-20); BUN (Urea Nitrogen) 8 mg/dL (7.0-18.7); Bilirubin, Total 0.2 mg/dL (0.3-1.2); Calc. Creatinine Clearance 196 mL/min (70-130); Calcium 8.3 mg/dL (7.8-10.44); Carbon Dioxide 27 mmol/L (22-29); Chloride 104 mmol/L (98-107); Globulin 3.1 g/dL (2.4-3.5); Glucose 98 mg/dL (70-105); Potassium 3.9 mmol/L (3.5-5.1); Sodium 139 mmol/L (136-145)
[2024-12-05] MEDS ORDERED: Ibuprofen 600 MG TAB PO PRN (10:40)
[2024-12-05] MEDS ORDERED: Ibuprofen 200 MG TAB PO PRN (10:45)
[2024-12-05] MEDS: Tramadol Hcl [Tramadol Hcl Er] 200 MG Tab.Er.24h PO SCH (19:55)
[2024-12-05] MEDS: Enoxaparin 40 MG (0.4 mL) SYRINGE SC SCH (19:56)
[2024-12-05] MEDS: HYDROcodone/Acetaminophen 5/325 mg Tablet PO SCH (23:05)
[2024-12-06] MEDS: Ketorolac Tromethamine 30 MG (1 mL) VIAL IVP SCH (00:27)
[2024-12-06 05:27] LABS: #Basophils 0.03 10x3/uL (0.0-0.2); #Eosinophils 0.15 10x3/uL (0.0-0.7); #Monocytes 0.51 10x3/uL (0.11-0.59); #Neutrophils 4.13 10x3/uL (1.40-6.50); %Basophils 0.4 % (0.0-1.0); %Eosinophils 2.1 % (0.0-10.0); %Lymphocytes 33.5 % (21.0-51.0); %Monocytes 7.0 % (0.0-10.0); %Neutrophils 56.5 % (42.0-75.0); Hematocrit 34.1 % (36.0-47.0); Hemoglobin 10.3 g/dL (12.0-16.0); Mean Corpuscular Hemoglobin 23.7 pg (27.0-31.0); Mean Corpuscular Volume 78.6 fL (78.0-98.0); Platelet Count 255 10x3/uL (130-400); Red Blood Cell (RBC) Count 4.34 mill/uL (4.20-5.40); White Blood Cell (WBC) Count 7.31 10x3/uL (4.8-10.8)
[2024-12-06 05:54] LABS: ALT (SGPT) 29 U/L (Less than 34); AST (SGOT) 26 U/L (11-34); Albumin 3.3 g/dL (3.1-4.5); Alkaline Phosphatase 103 U/L (40-110); Anion Gap 13 mmol/L (10-20); BUN (Urea Nitrogen) 9 mg/dL (7.0-18.7); Bilirubin, Total 0.2 mg/dL (0.3-1.2); Calc. Creatinine Clearance 190 mL/min (70-130); Calcium 8.5 mg/dL (7.8-10.44); Carbon Dioxide 24 mmol/L (22-29); Chloride 104 mmol/L (98-107); Globulin 3.3 g/dL (2.4-3.5); Glucose 113 mg/dL (70-105); Potassium 4.0 mmol/L (3.5-5.1); Sodium 137 mmol/L (136-145)
[2024-12-06] MEDS ORDERED: Bupivacaine 0.25% HCL 30 ML VIAL ONE (11:25)
[2024-12-06] MEDS ORDERED: fentaNYL PF 100 MCG/2 ML SYRINGE ONE ×2 (11:29→12:57)
[2024-12-06] MEDS ORDERED: Lidocaine 1% (PF) 30 ML VIAL ONE (12:00)
[2024-12-06] MEDS ORDERED: Ketorolac Tromethamine 30 MG (1 mL) VIAL ONE (13:22)
[2024-12-06] MEDS ORDERED: Gabapentin 300 MG CAP ONE (13:23)
[2024-12-06] MEDS ORDERED: HYDROmorphone 0.5 MG/0.5 ML SYRINGE ONE (13:49)
[2024-12-06] MEDS ORDERED: Acetaminophen 500 MG TAB PO PRN (16:15)
[2024-12-06] MEDS: diphenhydrAMINE 50 MG/ML VIAL IVP SCH (17:05)
[2024-12-06] MEDS: DULoxetine 30 MG CAP PO SCH (20:46)
[2024-12-07 05:10] LABS: #Basophils Less than 0.03 10x3/uL (0.0-0.2); #Eosinophils 0.18 10x3/uL (0.0-0.7); #Monocytes 0.34 10x3/uL (0.11-0.59); #Neutrophils 2.77 10x3/uL (1.40-6.50); %Basophils 0.2 % (0.0-1.0); %Eosinophils 3.7 % (0.0-10.0); %Lymphocytes 31.7 % (21.0-51.0); %Monocytes 7.0 % (0.0-10.0); %Neutrophils 57.0 % (42.0-75.0); Hematocrit 31.5 % (36.0-47.0); Hemoglobin 9.6 g/dL (12.0-16.0); Mean Corpuscular Hemoglobin 24.0 pg (27.0-31.0); Mean Corpuscular Volume 78.8 fL (78.0-98.0); Platelet Count 179 10x3/uL (130-400); Red Blood Cell (RBC) Count 4.00 mill/uL (4.20-5.40); White Blood Cell (WBC) Count 4.86 10x3/uL (4.8-10.8)
[2024-12-07 05:27] LABS: ALT (SGPT) 49 U/L (Less than 34); AST (SGOT) 68 U/L (11-34); Albumin 2.9 g/dL (3.1-4.5); Alkaline Phosphatase 129 U/L (40-110); Anion Gap 12 mmol/L (10-20); BUN (Urea Nitrogen) 6 mg/dL (7.0-18.7); Bilirubin, Total 0.2 mg/dL (0.3-1.2); Calc. Creatinine Clearance 207 mL/min (70-130); Calcium 8.3 mg/dL (7.8-10.44); Carbon Dioxide 26 mmol/L (22-29); Chloride 107 mmol/L (98-107); Globulin 2.8 g/dL (2.4-3.5); Glucose 139 mg/dL (70-105); Potassium 4.0 mmol/L (3.5-5.1); Sodium 141 mmol/L (136-145)
[2024-12-07] MEDS: DULoxetine 30 MG CAP PO SCH (08:54)
[2024-12-07] MEDS: Ergocalciferol 1.25 MG(50,000 UNITS) CAP PO SCH (08:54)
[2024-12-07] MEDS: Gabapentin 300 MG CAP PO SCH (13:08)
[2024-12-08 06:28] LABS: #Basophils Less than 0.03 10x3/uL (0.0-0.2); #Eosinophils 0.21 10x3/uL (0.0-0.7); #Monocytes 0.40 10x3/uL (0.11-0.59); #Neutrophils 2.56 10x3/uL (1.40-6.50); %Basophils 0.2 % (0.0-1.0); %Eosinophils 4.2 % (0.0-10.0); %Lymphocytes 36.8 % (21.0-51.0); %Monocytes 7.9 % (0.0-10.0); %Neutrophils 50.7 % (42.0-75.0); Hematocrit 31.2 % (36.0-47.0); Hemoglobin 9.4 g/dL (12.0-16.0); Mean Corpuscular Hemoglobin 24.4 pg (27.0-31.0); Mean Corpuscular Volume 80.8 fL (78.0-98.0); Platelet Count 174 10x3/uL (130-400); Red Blood Cell (RBC) Count 3.86 mill/uL (4.20-5.40); White Blood Cell (WBC) Count 5.05 10x3/uL (4.8-10.8)
[2024-12-08 06:44] LABS: ALT (SGPT) 37 U/L (Less than 34); AST (SGOT) 33 U/L (11-34); Albumin 2.9 g/dL (3.1-4.5); Alkaline Phosphatase 109 U/L (40-110); Anion Gap 13 mmol/L (10-20); BUN (Urea Nitrogen) 9 mg/dL (7.0-18.7); Bilirubin, Total 0.2 mg/dL (0.3-1.2); Calc. Creatinine Clearance 170 mL/min (70-130); Calcium 8.3 mg/dL (7.8-10.44); Carbon Dioxide 26 mmol/L (22-29); Chloride 107 mmol/L (98-107); Globulin 3.1 g/dL (2.4-3.5); Glucose 106 mg/dL (70-105); Potassium 4.2 mmol/L (3.5-5.1); Sodium 142 mmol/L (136-145)
[2024-12-08 07:04] LABS: Ferritin 45.33 ng/mL (10-291)
[2024-12-08] MEDS: Ketorolac Tromethamine 30 MG (1 mL) VIAL IVP SCH (17:33)
[2024-12-08] MEDS: Acetaminophen 500 MG TAB PO PRN (20:20)
[2024-12-09 07:19] LABS: #Basophils Less than 0.03 10x3/uL (0.0-0.2); #Eosinophils 0.14 10x3/uL (0.0-0.7); #Monocytes 0.29 10x3/uL (0.11-0.59); #Neutrophils 2.18 10x3/uL (1.40-6.50); %Basophils 0.4 % (0.0-1.0); %Eosinophils 3.1 % (0.0-10.0); %Lymphocytes 41.7 % (21.0-51.0); %Monocytes 6.4 % (0.0-10.0); %Neutrophils 47.7 % (42.0-75.0); Hematocrit 32.1 % (36.0-47.0); Hemoglobin 9.6 g/dL (12.0-16.0); Mean Corpuscular Hemoglobin 23.7 pg (27.0-31.0); Mean Corpuscular Volume 79.3 fL (78.0-98.0); Platelet Count 218 10x3/uL (130-400); Red Blood Cell (RBC) Count 4.05 mill/uL (4.20-5.40); White Blood Cell (WBC) Count 4.56 10x3/uL (4.8-10.8)
[2024-12-09 07:42] LABS: ALT (SGPT) 27 U/L (Less than 34); AST (SGOT) 20 U/L (11-34); Albumin 3.1 g/dL (3.1-4.5); Alkaline Phosphatase 102 U/L (40-110); Anion Gap 12 mmol/L (10-20); BUN (Urea Nitrogen) 6 mg/dL (7.0-18.7); Bilirubin, Total 0.2 mg/dL (0.3-1.2); Calc. Creatinine Clearance 203 mL/min (70-130); Calcium 8.3 mg/dL (7.8-10.44); Carbon Dioxide 27 mmol/L (22-29); Chloride 107 mmol/L (98-107); Globulin 3.1 g/dL (2.4-3.5); Glucose 102 mg/dL (70-105); Potassium 3.8 mmol/L (3.5-5.1); Sodium 142 mmol/L (136-145)
[2024-12-09] MEDS: diphenhydrAMINE 50 MG/ML VIAL IVP SCH (12:00)
[2024-12-09 18:29] VITALS: BMI 53.8
[2024-12-10 05:29] LABS: #Basophils Less than 0.03 10x3/uL (0.0-0.2); #Eosinophils 0.12 10x3/uL (0.0-0.7); #Monocytes 0.29 10x3/uL (0.11-0.59); #Neutrophils 2.51 10x3/uL (1.40-6.50); %Basophils 0.4 % (0.0-1.0); %Eosinophils 2.6 % (0.0-10.0); %Lymphocytes 35.9 % (21.0-51.0); %Monocytes 6.3 % (0.0-10.0); %Neutrophils 54.2 % (42.0-75.0); Hematocrit 32.7 % (36.0-47.0); Hemoglobin 10.0 g/dL (12.0-16.0); Mean Corpuscular Hemoglobin 23.9 pg (27.0-31.0); Mean Corpuscular Volume 78.2 fL (78.0-98.0); Platelet Count 181 10x3/uL (130-400); Red Blood Cell (RBC) Count 4.18 mill/uL (4.20-5.40); White Blood Cell (WBC) Count 4.63 10x3/uL (4.8-10.8)
[2024-12-10 05:47] LABS: ALT (SGPT) 33 U/L (Less than 34); AST (SGOT) 61 U/L (11-34); Albumin 3.1 g/dL (3.1-4.5); Alkaline Phosphatase 123 U/L (40-110); Anion Gap 10 mmol/L (10-20); BUN (Urea Nitrogen) 6 mg/dL (7.0-18.7); Bilirubin, Total 0.2 mg/dL (0.3-1.2); Calc. Creatinine Clearance 192 mL/min (70-130); Calcium 8.4 mg/dL (7.8-10.44); Carbon Dioxide 29 mmol/L (22-29); Chloride 106 mmol/L (98-107); Globulin 3.1 g/dL (2.4-3.5); Glucose 102 mg/dL (70-105); Potassium 4.1 mmol/L (3.5-5.1); Sodium 141 mmol/L (136-145)
[2024-12-10] MEDS ORDERED: hydrALAZINE 20 MG/ML VIAL SLOW IVP PRN (07:13)
[2024-12-11 05:43] LABS: #Basophils Less than 0.03 10x3/uL (0.0-0.2); #Eosinophils 0.17 10x3/uL (0.0-0.7); #Monocytes 0.44 10x3/uL (0.11-0.59); #Neutrophils 3.29 10x3/uL (1.40-6.50); %Basophils 0.3 % (0.0-1.0); %Eosinophils 2.8 % (0.0-10.0); %Lymphocytes 34.0 % (21.0-51.0); %Monocytes 7.3 % (0.0-10.0); %Neutrophils 54.9 % (42.0-75.0); Hematocrit 35.6 % (36.0-47.0); Hemoglobin 10.7 g/dL (12.0-16.0); Mean Corpuscular Hemoglobin 23.4 pg (27.0-31.0); Mean Corpuscular Volume 77.9 fL (78.0-98.0); Platelet Count 212 10x3/uL (130-400); Red Blood Cell (RBC) Count 4.57 mill/uL (4.20-5.40); White Blood Cell (WBC) Count 6.00 10x3/uL (4.8-10.8)
[2024-12-11 05:51] LABS: Anion Gap 13 mmol/L (10-20); BUN (Urea Nitrogen) 6 mg/dL (7.0-18.7); Calc. Creatinine Clearance 196 mL/min (70-130); Carbon Dioxide 25 mmol/L (22-29); Chloride 105 mmol/L (98-107); Potassium 3.9 mmol/L (3.5-5.1); Sodium 139 mmol/L (136-145)
[2024-12-11 05:52] LABS: ALT (SGPT) 43 U/L (Less than 34); AST (SGOT) 71 U/L (11-34); Albumin 2.9 g/dL (3.1-4.5); Alkaline Phosphatase 154 U/L (40-110); Bilirubin, Total 0.2 mg/dL (0.3-1.2); Calcium 8.7 mg/dL (7.8-10.44); Globulin 3.3 g/dL (2.4-3.5); Glucose 96 mg/dL (70-105)
[2024-12-11] MEDS: diphenhydrAMINE 50 MG/ML VIAL IVP SCH (10:31)
[2024-12-12 05:42] LABS: #Basophils Less than 0.03 10x3/uL (0.0-0.2); #Eosinophils 0.16 10x3/uL (0.0-0.7); #Monocytes 0.51 10x3/uL (0.11-0.59); #Neutrophils 3.24 10x3/uL (1.40-6.50); %Basophils 0.2 % (0.0-1.0); %Eosinophils 2.5 % (0.0-10.0); %Lymphocytes 37.1 % (21.0-51.0); %Monocytes 8.1 % (0.0-10.0); %Neutrophils 51.5 % (42.0-75.0); Hematocrit 37.3 % (36.0-47.0); Hemoglobin 11.2 g/dL (12.0-16.0); Mean Corpuscular Hemoglobin 23.7 pg (27.0-31.0); Mean Corpuscular Volume 79.0 fL (78.0-98.0); Platelet Count 210 10x3/uL (130-400); Red Blood Cell (RBC) Count 4.72 mill/uL (4.20-5.40); White Blood Cell (WBC) Count 6.30 10x3/uL (4.8-10.8)
[2024-12-12 05:56] LABS: ALT (SGPT) 30 U/L (Less than 34); AST (SGOT) 32 U/L (11-34); Albumin 3.0 g/dL (3.1-4.5); Alkaline Phosphatase 132 U/L (40-110); Anion Gap 12 mmol/L (10-20); BUN (Urea Nitrogen) 7 mg/dL (7.0-18.7); Bilirubin, Total 0.1 mg/dL (0.3-1.2); Calc. Creatinine Clearance 180 mL/min (70-130); Calcium 8.6 mg/dL (7.8-10.44); Carbon Dioxide 26 mmol/L (22-29); Chloride 106 mmol/L (98-107); Globulin 3.3 g/dL (2.4-3.5); Glucose 110 mg/dL (70-105); Potassium 3.9 mmol/L (3.5-5.1); Sodium 140 mmol/L (136-145)
[2024-12-12 15:42] VITALS: BP 102/64; TEMP 98.2
== END 2024-12-12 16:23 | disposition home or self-care (01) | DRG 315 ==
LOC: T4-A 21:53
PROVIDERS: ADMIT Family Medicine; ATTEND Family Medicine
PROC: 0JPTXXZ Removal of Tunneled Vascular Access Device from Trunk Subcutaneous Tissue and Fascia, External Approach (ICD-10-PCS; principal; 2024-12-06)
DX: T80.211A Bloodstream infection due to central venous catheter, initial encounter (principal); N39.0 Urinary tract infection, site not specified; R78.81 Bacteremia; Z68.43 Body mass index [BMI] 50.0-59.9, adult; E03.9 Hypothyroidism, unspecified; Z91.048 Other nonmedicinal substance allergy status; Z88.2 Allergy status to sulfonamides; Z79.899 Other long term (current) drug therapy; Z90.49 Acquired absence of other specified parts of digestive tract; Z90.89 Acquired absence of other organs; Z95.0 Presence of cardiac pacemaker; M19.90 Unspecified osteoarthritis, unspecified site; E66.813 Obesity, class 3; G62.9 Polyneuropathy, unspecified; B95.2 Enterococcus as the cause of diseases classified elsewhere; D50.9 Iron deficiency anemia, unspecified
CPT/HCPCS: 36415; 71046; 80053; 80170; 82728; 83036; 84439; 84443; 84481; 85025; 86141; 87040; 87071; 93005; 93010; 93306; J0290; J0665; J0696; J0878; J1171; J1200; J1580; J1650; J1885; J2250; J2270; J2704; J3010; Q0162

== ENCOUNTER 2024-12-15 16:20 | Emergency (ER) | payer MEDICAID | END 2024-12-15 18:00 | disposition home or self-care (01) | LOC: ERS 16:20 | DX: S21.112D Laceration without foreign body of left front wall of thorax without penetration into thoracic cavity, subsequent encounter (principal); Z48.02 Encounter for removal of sutures; Z45.2 Encounter for adjustment and management of vascular access device; X58.XXXD Exposure to other specified factors, subsequent encounter | CPT/HCPCS: 99282 ==

== ENCOUNTER 2024-12-16 11:11 | Emergency (ER) | payer MEDICAID ==
[2024-12-16 15:14] LABS: CAUTI Indications for Culture Pelvic or flank pain; Glucose, Urine (Dipstick) Normal (Negative); Leukocyte 75 Leu/uL (Negative); Protein, Urine (Dipstick) Negative (Neg-Trace); RBC/HPF Greater than 50 HPF (0-3); Specific Gravity, Urine 1.008 (1.002-1.036)
[2024-12-16 15:15] LABS: Bacteria/HPF 1+ HPF (None Seen)
[2024-12-16 15:16] LABS: Urine Culture Reflex No No
== END 2024-12-16 17:33 | disposition home or self-care (01) ==
LOC: ERS 11:11
DX: N39.0 Urinary tract infection, site not specified (principal); Z86.73 Personal history of transient ischemic attack (TIA), and cerebral infarction without residual deficits; Z95.0 Presence of cardiac pacemaker
CPT/HCPCS: 71045; 81001; 96372; J1580

== ENCOUNTER → 2024-12-17 | Day surgery (SDC) | payer MEDICAID ==
[~2024-12-17] MED LIST: Lidocaine 1% PF 5 ML VIAL ONE; Sodium Bicarbonate 2.5 MEQ/5 ML SDV ONE
== END ==
LOC: SPEC 12:52
PROVIDERS: ATTEND Physician Assistant
PROC: 05HY33Z Insertion of Infusion Device into Upper Vein, Percutaneous Approach (ICD-10-PCS; principal; 2024-12-17)
DX: N39.0 Urinary tract infection, site not specified (principal)
CPT/HCPCS: 36573; C1751; Q9967